=== PATIENT | female | born 1965 | race Two or more races ===

== ENCOUNTER 2020-07-26 11:09 | Emergency (ER) | payer OTHER ==
[~2020-07-26] VITALS: Ht 172.7 cm; Wt 134.0 kg
--- NOTE | 2020-07-26 11:21 | NUR ---
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
[2020-07-26 12:08] LABS: BASOPHILS % (AUTO) 1 % (0-1); EOSINOPHILS % (AUTO) 12 % (1-7); LYMPHOCYTES % (AUTO) 24 % (22-44); MEAN CORPUSCULAR HEMOGLOBIN 28.8 pg (27.0-34.8); MEAN CORPUSCULAR HGB CONC 34.1 g/dL (32.4-35.8); MEAN PLATELET VOLUME 8.1 fL (7.4-10.4); MONOCYTES % (AUTO) 6 % (2-9); NEUTROPHILS % (AUTO) 57 % (42-75); PLATELET COUNT 209 x10^3/uL (130-400); RED BLOOD COUNT 4.96 x10^6/uL (3.82-5.3); RED CELL DISTRIBUTION WIDTH 12.6 % (9.6-15.2)
[2020-07-26 12:09] LABS: MD NO
[2020-07-26 12:18] LABS: ALANINE AMINOTRANSFERASE 27 U/L (12-78); ALBUMIN 3.5 g/dL (3.4-5.0); ANION GAP 5 mmol/L (5-15); CALCIUM 9.2 mg/dL (8.5-10.1); CHLORIDE 109 mmol/L (98-107)
[2020-07-26 12:23] LABS: ALKALINE PHOSPHATASE 127 U/L (45-117); BILIRUBIN,TOTAL 0.8 mg/dL (0.2-1.0); TOTAL PROTEIN 7.4 g/dL (6.4-8.2); TROPONIN I < 0.015 ng/mL (0.000-0.045)
[2020-07-26 12:45] VITALS: BP 169/89
== END 2020-07-26 12:47 | disposition home or self-care (01) ==
LOC: ED 12:41
DX: R07.2 Precordial pain (principal); R06.00 Dyspnea, unspecified; R07.89 Other chest pain; I10 Essential (primary) hypertension; E11.9 Type 2 diabetes mellitus without complications; Z90.49 Acquired absence of other specified parts of digestive tract; Z79.899 Other long term (current) drug therapy
CPT/HCPCS: 36415; 71045; 80053; 83880; 84484; 85025; 93005; 99285